=== PATIENT | female | born 1985 | race Caucasian/White ===

== ENCOUNTER → 2020-08-30 | Outpatient (CLI) | payer OTHER ==
--- NOTE | 2020-08-30 14:47 | Diagnostic Imaging Report ---
INDICATION: Palpable lump upper outer right breast. Correlation is made prior mammogram 01/26/2016. 2-D and 3-D bilateral diagnostic mammography was performed with CAD. Both breasts remain heterogeneously dense, limiting the sensitivity of mammography. A biopsy marker clip in the upper outer left breast is noted. No mass is identified. No malignant appearing microcalcifications are seen. Axillae are unremarkable. IMPRESSION: BI-RADS 0 No mammographic features suspicious for malignancy are identified. Even so, directed sonographic interrogation of the area of palpable abnormality upper outer right breast is recommended and will be performed today. ACR BI-RADS Category 0: Incomplete. (Needs additional imaging evaluation). Result letter will be mailed to the patient. Note: At least 10% of breast cancer is not imaged by mammography. Dictated by: Dictated on workstation # [id number]
--- NOTE | 2020-08-30 15:43 | Diagnostic Imaging Report ---
INDICATION: Palpable lump right breast. COMPARISON: Correlation is made with the diagnostic mammogram from earlier this same day. FINDINGS: Sonographic interrogation of the area of lump in the upper outer right breast was performed. There is some heterogeneous tissue in this location. There are tiny cysts with the largest approximately 7 mm in size at the 10 o'clock location 7-8 cm from the nipple. No solid mass is detected. IMPRESSION: Small cysts in the upper outer right breast. No concerning sonographic finding is identified. Continued close clinical and self breast exams are recommended to confirm stability of the area of palpable abnormality. ACR BI-RADS Category 2: Benign findings. Dictated by: Dictated on workstation # [id number]
== END ==
LOC: RAD 13:15
PROVIDERS: ATTEND Nurse Practitioner Family
DX: N60.01 Solitary cyst of right breast (principal)
CPT/HCPCS: 76642; 77066; G0279; 77062